=== PATIENT | male | born 1960 | race Caucasian/White ===

== ENCOUNTER 2024-07-19 18:13 | Emergency (ER) | payer MEDICARE, OTHER ==
[2024-07-19 21:28] VITALS: BP 127/84; PULSE 68
== END 2024-07-19 19:52 | disposition home or self-care (01) ==
LOC: JP.ED 18:13
DX: S22.41XA Multiple fractures of ribs, right side, initial encounter for closed fracture (principal); Z79.899 Other long term (current) drug therapy; W11.XXXA Fall on and from ladder, initial encounter
CPT/HCPCS: 71250; 74176; 99283